=== PATIENT | female | born 1985 | race Caucasian/White ===

== ENCOUNTER 2017-10-14 14:42 | Outpatient (CLI) | payer OTHER ==
[~2017-10-14] VITALS: Ht 152.4 cm; Wt 65.5 kg
[2017-10-14] MEDS ORDERED: PREN1TAB79 PO (15:46)
[2017-10-14 15:47] VITALS: Ht 152.4 cm; Wt 65.5 kg
[2017-10-14] MEDS ORDERED: FER325 PO (15:47)
[2017-10-14 15:48] VITALS: BP 113/63; PULSE 67
--- NOTE | 2017-10-14 16:54 | RADRPT ---
PROCEDURE: US OB. CLINICAL INDICATION: Low YESENIA TECHNIQUE: Multiple sonographic images of the pelvis were obtained. The images were reviewed on a PACS workstation. COMPARISON: No prior studies are available for comparison. FINDINGS: There is a single live intrauterine . cardiac activity is identified at a rate of 12 4 beats per minute. presentation is cephalic. Placenta is posterior grade 1 to II. Biophysical profile score is as follows: Breathing 2 Movements 2 Tone 2 Fluid volume 2 Amniotic fluid index = 7.8 cm Total biophysical profile score = 8/8 IMPRESSION: Biophysical profile score = 8/8 RPTAT: HH .Marco Fletcher MD, MD Date Time Electronically viewed and signed by .Marco Fletcher MD, on 10/14/2017 16:53 .W/
--- NOTE | 2017-10-14 16:59 | RADRPT ---
PROCEDURE: US OB. CLINICAL INDICATION: Low YESENIA TECHNIQUE: Multiple sonographic images of the pelvis were obtained. The images were reviewed on a PACS workstation. COMPARISON: No prior studies are available for comparison. FINDINGS: There is a single viable intrauterine gestation. Cardiac activity is present with 132 beats per min justina. There is a cephalic presentation. Measurements were made in order to determine age. The results are as follows: BPD =8.80 cm HC =32.42 cm AC =31.50 cm FL =7.31 cm. Estimated gestational age of approximately 36 weeks 2 days. The estimated date of delivery is 11/09/2017. The EFW = 2150 g 34.9% . The placenta is posterior. There is no evidence for an abruption. There is a low normal amount of amniotic fluid with an YESENIA = 7.8 cm. IMPRESSION: Single viable intrauterine gestation of approximately 36 weeks 2 days. The estimated date of delive ry is 11/09/2017 Low normal YESENIA . .Marco Fletcher MD, Date Time Electronically viewed and signed by .Marco Fletcher MD, on 10/14/2017 16:58 .W/
[2017-10-14] MEDS ORDERED: LACTATED RINGER'S 1,000 ML IV ONE (17:45)
--- NOTE | 2017-10-14 18:14 | PN ---
Triage Information Date/Time Reason for visit: Low YESENIA Weeks of Gestation 35 weeks 3 days /Para Diabetes: none Hypertention: none Objective Vital Signs Date Time Temp Pulse Resp B/P Pulse Ox O2 Delivery O2 Flow Rate FiO2 10/14/17 15:48 97.9 67 113/63 Room Air Heart Rate: 130's Contractions: None Results/Medications Medications Current Medications Lactated Ringer's (Lr) 1,000 ml @ 1,000 mls/hr Q1H ONCE IV Last administered on 10/14/17t 17:58; Admin Dose 1,000 MLS/HR; Start 10/14/17 at 17:45; Stop at 18:44 Assessment/Plan EDC 01/2018 35 weeks and 3 days referred from the clinic due to low YESENIA her biophysical profile is 8/8 her YESENIA 7.6 she will be receiving 1000 cc of IV fluid hydration advised return to the hospital a.m. to repeat YESENIA. EUGENIO EASLEY MD Oct 14, 2017 18:14
--- NOTE | 2017-10-14 19:35 | RADRPT ---
PROCEDURE: US OB. CLINICAL INDICATION: Low amniotic fluid index TECHNIQUE: Multiple sonographic images of the pelvis were obtained. The images were reviewed on a PACS workstation. COMPARISON: No prior studies are available for comparison. FINDINGS: There is a single live intrauterine . cardiac activity is identified at a rate of 14 6 beats per minute. presentation is cephalic. Placenta is fundal grade II. Biophysical profile score is as follows: Breathing 2 Movements 2 Tone 2 Fluid volume 2 Amniotic fluid index = 10.3 cm Total biophysical profile score = 8/ IMPRESSION: Biophysical profile score = 06/09 RPTAT: HH .Marco Fletcher MD, MD Date Time Electronically viewed and signed by .Marco Fletcher MD, on 10/14/2017 19:35 .W/
== END 2017-10-14 20:15 | disposition home or self-care (01) ==
LOC: OBT 14:42 → L-D 14:42 → OBT 20:15
PROVIDERS: ATTEND Obstetrics & Gynecology
DX: O41.8X30 Other specified disorders of amniotic fluid and membranes, third trimester, not applicable or unspecified (principal); Z3A.35 35 weeks gestation of pregnancy
CPT/HCPCS: 36415; 76815; 76818; 96360; G0463; J7120

== ENCOUNTER 2017-10-15 13:14 | Inpatient (IN) | payer OTHER ==
[~2017-10-15] VITALS: Ht 154.9 cm; Wt 67.1 kg
[~2017-10-15 13:14] MED LIST: FER325 PO; PREN1TAB79 PO
[2017-10-15 13:18] VITALS: Ht 154.9 cm; Wt 67.1 kg
--- NOTE | 2017-10-15 15:54 | HP ---
Date/Time of Note Date/Time of Note DATE: 10/15/17 TIME: 15:33 OB - History Hx of Present Free Text/Dictation 32 years old female admitted to the hospital at 37 weeks of gestation and concern regarding decreased movement, biophysical report 04/09 due to low YESENIA of 4.4 cm. , Pelvic examination on admission; cervix long and closed, presenting part vertex at -2 station , plan of Cervidil induction discussed with her, pros and cons explained she agreed with induction plan Chief Complaint: 37 weeks low YESENIA 4.4 cm Estimated Due Date: Nov 05, 2017 : 2 Para: 1 Care: Good Care Ultrasounds: Normal mid trimester US Obstetrical Complications: None Medical Complications: None Past Family/Social History * Past Medical, Surgical, Family and Obstetric Histories reviewed from chart. Rubella: immune RPR/VDRL: Negative GBS Status: Negative HBsAG: Negative OB Admission Exam Physical Exam HEENT: WNL Heart: Rhythm Normal Lungs: Clear, Equal Abdomen: WNL Extremities: Normal Reflexes: Normal Cervical Dilatation: None Effacement: 25% Station: -2 Membranes: Intact Heart Rate: 130's Accelerations: Accelerations Present Decelerations: No Decelerations Varibility: Moderate Contractions on Admission: None OB Assessment/Plan Reason for admission: other (37 weeks low YESENIA) Other plan: 32 years old female EDC November 05 admitted to [facility] due to low YESENIA ,she underwent a biophysical profile it was 6/8, YESENIA 4.4 cm, due to unfavorable cervix Cervidil induction discussed with her all question answered is willing to proceed with the procedure EUGENIO EASLEY MD Oct 15, 2017 15:46
[2017-10-15] MEDS ORDERED: MISOPROSTOL 200 MCG TAB PR PRN (16:00)
[2017-10-15] MEDS ORDERED: METHYLERGONOVINE 0.2 MG INJ IM PRN (16:00)
[2017-10-15] MEDS ORDERED: BUTORPHANOL 2 MG INJ IV PRN (16:00)
[2017-10-15] MEDS ORDERED: OXYTOCIN 30 UNITS/LR 500 ML IV PRN (16:00)
[2017-10-15] MEDS ORDERED: CARBOPROST 250 MCG INJ IM PRN (16:00)
[2017-10-15] MEDS ORDERED: AMPICILLIN 2 GM/NS (PMX) 100 ML IV ONE (16:00)
[2017-10-15] MEDS ORDERED: IBUPROFEN 600 MG TAB PO PRN (16:00)
[2017-10-15] MEDS ORDERED: DINOPROSTONE 10 MG VAG SUPP VAG ONE (16:00)
[2017-10-15] MEDS ORDERED: OXYTOCIN 30 UNITS/LR 500 ML IV SCH ×2 (16:00)
[2017-10-15] MEDS ORDERED: LIDOCAINE 1% (MPF) 30 ML INJ INJ PRN (16:00)
[2017-10-15 16:02] LABS: BASOPHILS % 0.3 % (0.0-2.0); EOSINOPHILS # 0.1 10^3/ul (0.0-0.5); EOSINOPHILS % 0.6 % (0.0-7.0); HEMATOCRIT 37.1 % (37.0-47.0); HEMOGLOBIN 13.2 g/dl (12.0-16.0); LYMPHOCYTES # 1.7 10^3/ul (0.8-2.9); LYMPHOCYTES % 15.4 % (15.0-51.0); MEAN CORPUSCULAR HEMOGLOBIN 33.5 pg (29.0-33.0); MEAN CORPUSCULAR HGB CONC 35.6 g/dl (32.0-37.0); MEAN CORPUSCULAR VOLUME 94.2 fl (82.0-101.0); MEAN PLATELET VOLUME 11.4 fl (7.4-10.4); MONOCYTE # 0.6 10^3/ul (0.3-0.9); MONOCYTES % 5.7 % (0.0-11.0); NEUTROPHIL # 8.4 10^3/ul (1.6-7.5); NEUTROPHILS % 77.4 % (39.0-77.0); PLATELET COUNT 182 10^3/UL (140-415); RED BLOOD COUNT 3.94 10^6/ul (4.20-5.40); RED CELL DISTRIBUTION WIDTH 12.8 % (11.5-14.5); WHITE BLOOD COUNT 10.8 10^3/ul (4.8-10.8)
[2017-10-15 16:19] LABS: INR 0.91; PARTIAL THROMBOPLASTIN TIME 25.2 Sec (25.0-35.0); PROTIME 12.3 Sec (11.9-14.9)
[2017-10-15] MEDS: LACTATED RINGER'S 1,000 ML IV SCH ×2 (16:20→23:37)
--- NOTE | 2017-10-15 16:55 | RADRPT ---
PROCEDURE: US OB biophysical profile. CLINICAL INDICATION: No amniotic fluid index. Biophysical profile. TECHNIQUE: Multiple sonographic images of the pelvis were obtained. The images were reviewed on a PACS workstation. COMPARISON: US PELVIS 10/14/2017 FINDINGS: There is a single live intrauterine , in cephalic presentation. A normal heart rate i s identified measuring 129 beats per minute. The amniotic fluid index is low measuring 4.4 cm. Biophysical profile: movement 2/2 tone 2/2. breathing 2/2 YESENIA 0/2 Total 6 IMPRESSION: 1. Biophysical profile score of 6/8. 2. Single live intrauterine in cephalic presentation with normal heart rate of 129 b pm. 3. Low amniotic fluid index of 4.4 cm. Previously this measured 10.3 cm RPTAT: AAPP Physician Flip Date Time Electronically viewed and signed by Physician Flip on 10/15/2017 14:25 JUANA/
--- NOTE | 2017-10-15 16:56 | TRIAGE ---
OB Triage Datetime Report Generated by CPN: 10/15/2017 15:48 Datetime: 10/15/2017 14:34 Labor Evaluation Frequency: 0 Monitor Mode: External Heart Rate FHR Baseline Rate: 130 Monitor Mode: External US FHR Baseline Changes: No Baseline Change Variability: Moderate 6-25 bpm Accelerations: 15X15 Decelerations: None Category: Category I Pain Presence: None/Denies Datetime: 10/15/2017 13:23 Stage of : OB Triage Assessment Type: Triage Maternal Assessment Level of Consciousness: Fully Conscious DTR's/Clonus: DTRs 2+; No Clonus Headache: Denies Blurred Vision: No Respiratory Effort: Unlabored; Regular Rhythm; Equal Expansion Breath Sounds, Left: Clear and Equal Breath Sounds, Right: Clear and Equal Nausea/Vomiting: Denies RUQ Epigastric Pain: Denies Upper Extremities Edema: None Degree: None Facial Edema: None Temperature Route: Axillary Fall Risk Assessment History of Falling: (0) No Secondary Diagnosis: (0) No Ambulatory Aid: (0) Bedrest/Nurse Assist IV Therapy: (0) No Gait: (0) Normal/Bedrest/Immobile Mental Status: (0) Oriented to Own Ability Fall Score: 0 Fall Risk Score Definition: No Risk: No action required Labor Evaluation Frequency: OCC Monitor Mode: External Quality: Mild Pattern: Normal: <= 5 Contractions in 10 Minutes Resting Tone [place]: Relaxed Heart Rate FHR Baseline Rate: 145 Monitor Mode: External US FHR Baseline Changes: No Baseline Change Variability: Moderate 6-25 bpm Accelerations: 15X15 Decelerations: None Category: Category I Pain Presence: None/Denies Datetime: 10/15/2017 13:00 Time of Arrival: 10/15/2017 13:00 EGA: 37.0 Arrived By: Ambulatory Arrived From: [facility] Office Chief Complaint: LOW YESENIA Movement: Present Contractions: Denies/Absent Rupture of Membranes: Denies Vaginal Bleeding: None Vaginal Discharge: Denies Recent Sexual Intercouse: Denies Abdominal Trauma: Not Applicable Patient Complaints: None Time Provider Notified: 10/15/2017 14:40 Provider Notified: KAUSHAL Initial Plan: BPP AND YESENIA Datetime: 10/14/2017 20:00 Stage of : OB Triage Monitor Mode: External Quality: Mild Pattern: Normal: <= 5 Contractions in 10 Minutes Resting Tone [place]: Relaxed Heart Rate FHR Baseline Rate: 130 Monitor Mode: External US FHR Baseline Changes: No Baseline Change Variability: Moderate 6-25 bpm Accelerations: 15X15 Decelerations: None Category: Category I Pain Assessment Pain Scale: 0 Pain Presence: None/Denies Pain Type: N/A Datetime: 10/14/2017 19:00 Labor Evaluation Frequency: 3-14 Monitor Mode: External Duration (sec)2399: 60-80 Quality: Mild Pattern: Normal: <= 5 Contractions in 10 Minutes Resting Tone [place]: Relaxed Heart Rate FHR Baseline Rate: 130 Monitor Mode: External US FHR Baseline Changes: No Baseline Change Variability: Moderate 6-25 bpm Accelerations: 15X15 Decelerations: None Category: Category I Pain Assessment Pain Scale: 0 Pain Presence: None/Denies Pain Type: N/A Pain Goal: 0 Datetime: 10/14/2017 18:00 Labor Evaluation Frequency: X3 Monitor Mode: External Duration (sec)2399: 60-80 Quality: Mild Pattern: Normal: <= 5 Contractions in 10 Minutes Resting Tone [place]: Relaxed Heart Rate FHR Baseline Rate: 120 Monitor Mode: External US FHR Baseline Changes: No Baseline Change Variability: Moderate 6-25 bpm Accelerations: 15X15 Decelerations: None Category: Category I Pain Assessment Pain Scale: 0 Pain Presence: None/Denies Pain Type: N/A Pain Goal: 0 Datetime: 10/14/2017 16:57 Labor Evaluation Frequency: X3 Monitor Mode: External Duration (sec)2399: 60-80 Quality: Mild Pattern: Normal: <= 5 Contractions in 10 Minutes Resting Tone [place]: Relaxed Heart Rate FHR Baseline Rate: 120 Monitor Mode: External US FHR Baseline Changes: No Baseline Change Variability: Moderate 6-25 bpm Accelerations: 15X15 Decelerations: Early Category: Category I Pain Assessment Pain Scale: 0 Pain Presence: None/Denies Pain Type: N/A Pain Goal: 0 Datetime: 10/14/2017 16:12 Labor Evaluation Frequency: x2 Monitor Mode: External Duration (sec)2399: 60 Quality: Mild Pattern: Normal: <= 5 Contractions in 10 Minutes Resting Tone [place]: Relaxed Heart Rate FHR Baseline Rate: 130 Monitor Mode: External US FHR Baseline Changes: No Baseline Change Variability: Moderate 6-25 bpm Accelerations: 15X15 Decelerations: None Category: Category I Pain Assessment Pain Scale: 0 Pain Presence: None/Denies Pain Type: N/A Pain Goal: 0 Vaginal Exam Membrane Status: Intact Datetime: 10/14/2017 15:50 Time of Arrival: 10/14/2017 14:35 EGA: 36.6 Arrived By: Ambulatory Arrived From: Office Chief Complaint: LOW YESENIA Movement: Present Contractions: Denies/Absent Rupture of Membranes: Denies Vaginal Discharge: Denies Recent Sexual Intercouse: Denies Abdominal Trauma: Not Applicable Patient Complaints: None; Other Time Provider Notified: 10/14/2017 17:33 Provider Notified: KAUSHAL Initial Plan: EFM Datetime: 10/14/2017 15:40 Assessment Type: Triage Maternal Assessment Level of Consciousness: Fully Conscious DTR's/Clonus: DTRs 2+; No Clonus Headache: Denies Blurred Vision: No Respiratory Effort: Unlabored; Regular Rhythm; Equal Expansion Breath Sounds, Left: Clear and Equal Breath Sounds, Right: Clear and Equal Nausea/Vomiting: Denies RUQ Epigastric Pain: Denies Lower Extremities Edema: None Degree: None Upper Extremities Edema: None Degree: None Facial Edema: None Fall Risk Assessment History of Falling: (0) No Secondary Diagnosis: (0) No Ambulatory Aid: (0) Bedrest/Nurse Assist IV Therapy: (0) No Gait: (0) Normal/Bedrest/Immobile Mental Status: (0) Oriented to Own Ability Fall Score: 0 Fall Risk Score Definition: No Risk: No action required Monitor Mode: External Monitor Mode: External US Pain Assessment Pain Scale: 0 Pain Presence: None/Denies Pain Type: N/A Pain Goal: 0 Vaginal Exam Membrane Status: Intact
[2017-10-15] MEDS ORDERED: AMPICILLIN 1 GM/NS (PMX) 50 ML IV SCH (20:00)
[2017-10-16] MEDS: LACTATED RINGER'S 1,000 ML IV SCH ×4 (01:02→17:26)
[2017-10-16] MEDS ORDERED: FENTAnyl 2MCG/ML-ROPIV 0.2% 100 ML ONE (01:16)
[2017-10-16] MEDS ORDERED: morphine SULFATE/PF (10 MG/10 ML) INJ ONE (02:21)
[2017-10-16] MEDS ORDERED: METOCLOPRAMIDE 10 MG INJ ONE (02:21)
[2017-10-16] MEDS ORDERED: KETOROLAC 30 MG INJ ONE (02:21)
[2017-10-16] MEDS ORDERED: ONDANSETRON 4 MG INJ ONE (02:21)
[2017-10-16] MEDS ORDERED: NALOXONE (0.4 MG/ML) INJ IV PRN (04:00)
[2017-10-16] MEDS ORDERED: DIPHENHYDRAMINE 50 MG INJ IV PRN (04:00)
[2017-10-16] MEDS ORDERED: ONDANSETRON 4 MG INJ IV PRN (04:00)
[2017-10-16] MEDS: FENTAnyl 2MCG/ML-ROPIV 0.2% 100 ML BAG EPI SCH ×2 (08:43→17:32)
[2017-10-16] MEDS ORDERED: AMPICILLIN 2 GM/NS (PMX) 100 ML IV ONE (21:30)
[2017-10-17] MEDS ORDERED: OXYTOCIN 30 UNITS/LR 500 ML IV SCH
[2017-10-17] MEDS ORDERED: AMPICILLIN 1 GM/NS (PMX) 50 ML IV SCH (01:30)
[2017-10-17] MEDS: LACTATED RINGER'S 1,000 ML IV SCH ×3 (02:23→21:00)
[2017-10-17] MEDS: FENTAnyl 2MCG/ML-ROPIV 0.2% 100 ML BAG EPI SCH (02:27)
--- NOTE | 2017-10-17 03:57 | LDN ---
Date/Time of Note Date/Time of Note DATE: 10/17/17 TIME: 03:55 Delivery Summary of normal male 6lb20z Weeks of Gestation 37w1d Placenta Delivered: Spontaneously Meconium: Light Episiotomy: No Perineal laceration: 0 Anesthesia type: Epidural Estimated blood loss: 200 Sponge & Needle done & correct: Yes All needle counts correct: Yes Any foreign bodies felt in the: No Problems: Infant Delivery Information Sex Infant Sex: male Apgars 1 Minute: 9 5 Minute: 9 10 Minute: 0 Suctioning Nose & mouth suctioned at gaurang: Yes Delee suction performed: No Umbilical Cord Umbilical cord with: 3 Vessels Cord presentations: no nuchal cord Cord Blood was obtained: Yes Mother & Baby Disposition Disposition Mom & Baby to Maternity; Good: Yes Mom transferred to: Other Baby to NICU: No () LIANA ALTAMIRANO MD Oct 17, 2017 03:57
[2017-10-17] MEDS ORDERED: METHYLERGONOVINE 0.2 MG INJ IM PRN (06:30)
[2017-10-17] MEDS ORDERED: LANOLIN 7 GM TUBE TOP PRN (06:30)
[2017-10-17] MEDS ORDERED: BENZOCAINE 20% 56 ML SPRAY TOP PRN (06:30)
[2017-10-17] MEDS ORDERED: ZOLPIDEM 5 MG TAB PO PRN (06:30)
[2017-10-17] MEDS ORDERED: OXYTOCIN 30 UNITS/LR 500 ML IV PRN (06:30)
[2017-10-17] MEDS ORDERED: MISOPROSTOL 200 MCG TAB PR PRN (06:30)
[2017-10-17] MEDS ORDERED: CARBOPROST 250 MCG INJ IM PRN (06:30)
[2017-10-17 06:40] VITALS: BP 107/59; PULSE 76; RESP 18
[2017-10-17 08:30] VITALS: BP 103/54; PULSE 65; RESP 16
[2017-10-17] MEDS: SENNA/DOCUSATE NA (8.6MG/50MG) TAB PO SCH ×2 (09:37→21:27)
[2017-10-17] MEDS: WITCH HAZEL/GLYCERIN PAD PR PRN (09:38)
[2017-10-17 13:02] VITALS: BP 110/55; PULSE 77; RESP 16
[2017-10-17 16:00] VITALS: BP 108/61; RESP 18
[2017-10-17] MEDS: IBUPROFEN 600 MG TAB PO SCH (17:20)
[2017-10-17 19:45] VITALS: BP 103/50; PULSE 79; RESP 18
[2017-10-18] VITALS: BP 112/55; PULSE 66; RESP 18
[2017-10-18] MEDS: IBUPROFEN 600 MG TAB PO SCH ×7 (00:02→19:12)
[2017-10-18] MEDS ORDERED: OXYCODONE/ASPIRIN (4.88/325) TAB PO PRN ×2 (02:22)
[2017-10-18 04:05] VITALS: BP 109/55; PULSE 73; RESP 18
[2017-10-18] MEDS: LACTATED RINGER'S 1,000 ML IV SCH (05:00)
[2017-10-18 08:00] VITALS: BP 118/67; PULSE 71; RESP 14
[2017-10-18] MEDS: SENNA/DOCUSATE NA (8.6MG/50MG) TAB PO SCH ×2 (08:34→21:34)
--- NOTE | 2017-10-18 11:53 | QN ---
Documentation Comment Post normal vaginal delivery day 1 Afebrile. Vital signs are stable. Abdomen soft. Uterus firm. Lochia normal. Extremities normal. EUGENIO EASLEY MD Oct 18, 2017 11:53
[2017-10-18 12:09] LABS: BASOPHILS % 0.2 % (0.0-2.0); EOSINOPHILS # 0.1 10^3/ul (0.0-0.5); EOSINOPHILS % 0.9 % (0.0-7.0); HEMATOCRIT 32.4 % (37.0-47.0); HEMOGLOBIN 11.3 g/dl (12.0-16.0); LYMPHOCYTES % 7.9 % (15.0-51.0); MEAN CORPUSCULAR HEMOGLOBIN 33.7 pg (29.0-33.0); MEAN CORPUSCULAR HGB CONC 34.9 g/dl (32.0-37.0); MEAN CORPUSCULAR VOLUME 96.7 fl (82.0-101.0); MEAN PLATELET VOLUME 11.4 fl (7.4-10.4); MONOCYTE # 0.5 10^3/ul (0.3-0.9); MONOCYTES % 4.3 % (0.0-11.0); NEUTROPHIL # 10.6 10^3/ul (1.6-7.5); NEUTROPHILS % 85.9 % (39.0-77.0); PLATELET COUNT 140 10^3/UL (140-415); RED BLOOD COUNT 3.35 10^6/ul (4.20-5.40); RED CELL DISTRIBUTION WIDTH 13.3 % (11.5-14.5); WHITE BLOOD COUNT 12.3 10^3/ul (4.8-10.8)
[2017-10-18 16:40] VITALS: BP 109/60; PULSE 58; RESP 18
[2017-10-18] MEDS: WITCH HAZEL/GLYCERIN PAD PR PRN (19:11)
[2017-10-18 20:30] VITALS: BP 109/59; PULSE 69; RESP 18
[2017-10-19] MEDS: IBUPROFEN 600 MG TAB PO SCH ×3 (00:19→13:15)
[2017-10-19 04:14] VITALS: BP 109/66; PULSE 65; RESP 18
[2017-10-19] MEDS: SENNA/DOCUSATE NA (8.6MG/50MG) TAB PO SCH (09:00)
[2017-10-19] MEDS ORDERED: DIPHTH/TET/ACEL PERTUSS (ADULT) 0.5 ML VIAL IM* ONE (09:00)
--- NOTE | 2017-10-19 13:20 | PD.PPDC ---
[employer] Discharge Instruction Condition Patient Condition: Good Diet Diet: Resume Regular Diet Activity/Restrictions Activity: Normal Activity May Shower Restrictions: No Exercising No Lifting No Driving No Sexual Activity Nothing in the Vagina No Cyrus No Tampons, douche Follow-up Follow-up with Physician: 2, Week/Weeks Provider Information: instruction given recommended to make appointment to be seen at the clinic in 2 weeks EUGENIO EASLEY MD Oct 19, 2017 13:20
--- NOTE | 2017-10-19 13:23 | DS ---
Date/Time of Note Date/Time of Note DATE: 10/19/17 TIME: 13:21 Discharge Summary Admission/Discharge Info Admit Date/Time Oct 15, 2017 at 14:58 Discharge Date/Time October 2000 1710 at 1300 Discharge Diagnosis Post normal vaginal delivery day 2 Patient Condition: Good Procedures Normal vaginal delivery Hx of Present Illness 37 weeks admitted to the hospital for delivery Hospital Course Satisfactory uneventful Home Meds Reported Medications Ferrous Sulfate* (Ferrous Sulfate*) 325 Mg Tabec, 325 MG PO BID, TAB 10/14/17 Vit W-Ca,Fe,FA(<1 mg) ( Vitamins) 1 Each Tablet, 1 EACH PO, TAB 10/14/17 Follow-up Plan instruction given recommended to make appointment to be seen at the clinic in 2 weeks Primary Care Provider [facility] Time spent on discharge: < 30 minutes EUGENIO EASLEY MD Oct 19, 2017 13:23
== END 2017-10-19 14:30 | disposition home or self-care (01) | DRG 775 ==
LOC: L-D 13:14 → OBT 13:14 → L-D 14:58 → PP1 10-17 06:34
PROVIDERS: ADMIT Obstetrics & Gynecology; ATTEND Obstetrics & Gynecology
PROC: 10E0XZZ Delivery of Products of Conception, External Approach (ICD-10-PCS; principal; 2017-10-15)
PROC: 3E0P7VZ Introduction of Hormone into Female Reproductive, Via Natural or Artificial Opening (ICD-10-PCS; 2017-10-15)
DX: O41.03X0 Oligohydramnios, third trimester, not applicable or unspecified (principal); O36.8130 Decreased fetal movements, third trimester, not applicable or unspecified; Z3A.37 37 weeks gestation of pregnancy; Z37.0 Single live birth
CPT/HCPCS: 62319; 76818; 85025; 85610; 85730; 86592; 86850; 86900; 86901; 87340; 90715; G0463; J0290; J1885; J2274; J2405; J2590; J2765; J3010; J7120